=== PATIENT | female | born 1985 | race Caucasian/White ===

== ENCOUNTER 2016-08-13 20:31 | Emergency (ER) | payer OTHER ==
--- NOTE | ~2016-08-13 | CT52 ---
[facility] A Service of [facility] & [facility] RADIOLOGY TEXT RESULTS PATIENT: SYMONE GRAJEDA LOCATION: SED : 87 UNIT #: [id number] AGE: [address]: Camille Balbuena SEX: F ORDER DR: [id number] [address] [address] [id number] E MR#: [id number] Acc #: [id number] NAME: SYMONE GRAJEDA : 1985 SEX: F STUDY DATE/TIME: 08/13/2016 20:33 UNIT: SED ROOM: STUDY DESCRIPTION: CT Cervical Spine Wo Cont Attending Physician: Camille Balbuena Pa-C Ordering Physician: Camille Balbuena Pa-C Primary Care Physician: No Primary Care Physician MEDICAL IMAGING REPORT This report is preliminary unless electronic signature is present. EXAM CT cervical spine without contrast HISTORY Fell and hit head and neck today. Neck pain. TECHNIQUE This CT exam was performed with one or more of the following radiation dose reduction techniques: automatic control, adjustment of mA and/or kV according to patient size, and iterative reconstruction. FINDINGS CT cervical spine without contrast demonstrates satisfactory cervical alignment. No fracture, disc space narrowing or subluxation. No bony central canal stenosis or bony outlet foraminal stenosis. No precervical soft tissue swelling. IMPRESSION Negative CT cervical spine Dictated by... Drew Verdugo M.D. THIS IS AN ELECTRONICALLY VERIFIED REPORT Drew Verdugo M.D. at 08/14/2016 3:36 PM DFL/kate TD: 08/14/2016 01:10 JOB #: [id number] MEDICAL IMAGING REPORT
--- NOTE | ~2016-08-13 | CT71 ---
[facility] A Service of [facility] RADIOLOGY TEXT RESULTS PATIENT: SYMONE GRAJEDA LOCATION: SED : 87 UNIT #: [id number] AGE: [address]: Camille Balbuena PAC SEX: F ORDER DR: [id number] [address] [address] [id number] E MR#: [id number] Acc #: [id number] NAME: SYMONE GRAJEDA : 1985 SEX: F STUDY DATE/TIME: 08/13/2016 20:30 UNIT: SED ROOM: STUDY DESCRIPTION: CT Head Wo Contrast Attending Physician: Camille Balbuena Pa-C Ordering Physician: Camille Balbuena Pa-C Primary Care Physician: No Primary Care Physician MEDICAL IMAGING REPORT This report is preliminary unless electronic signature is present. EXAM CT head without contrast. INDICATIONS Pain after giving her head after falling off a Hover board at 7:00 p.m. tonight. TECHNIQUE This CT exam was performed with one or more of the following radiation dose reduction techniques: automatic exposure control, adjustment of mA and/or kV according to patient size, and iterative reconstruction. Axial CT images were obtained from vertex of the skull through skull base. No intravenous contrast was administered. FINDINGS TECHNIQUE Axial noncontrast images were obtained from the skull base to the vertex. This CT exam was performed with one or more of the following radiation dose reduction techniques: automatic exposure control, adjustment of mA and/or kV according to patient size, and iterative reconstruction. FINDINGS Ventricular size and configuration are normal. There is no evidence of acute infarct or hemorrhage. There are no extraaxial fluid collections. No mass lesion or mass effect is seen. There are no skull fractures. IMPRESSION Normal noncontrast head CT. Dictated by... [facility] A Service [facility] RADIOLOGY TEXT RESULTS PATIENT: SYMONE GRAJEDA LOCATION: SED : 87 UNIT #: [id number] AGE: [address]: Camille Balbuena PAC SEX: F ORDER DR: Vero Larson M.D. THIS IS AN ELECTRONICALLY VERIFIED REPORT Vero Larson M.D. at 08/16/2016 1:18 PM AFF/ea TD: 08/14/2016 00:42 JOB #: [id number] MEDICAL IMAGING REPORT
[~2016-08-13 20:31] MED LIST: ALEVE; ALPRAZOLAM PO; BACTRIM DS TABL1 TA1; FLEXERIL10 MG PO; GYNE LOTRIMIN VG; IBUPROFEN600 MG; IBUPROFEN800 MG PO; LORTAB 5/500 TA1 TA1; MIRALAX17 GM PO; MOBIC PO; MONISTAT VG; MULTIVITAMIN; NAPROSYN-EC500 MG PO; NO MEDICATIONS; PRENATAL VITAMI1 TA4 PO; PYRIDIUM PO; TESSALON200 MG PO; ULTRAM PO; VOLTAREN75 MG PO; ZITHROMAX PO; ZOFRAN ODT4 MG PO
== END 2016-08-13 21:37 | disposition home or self-care (01) ==
LOC: SED 20:31
DX: S13.4XXA Sprain of ligaments of cervical spine, initial encounter (principal); S00.93XA Contusion of unspecified part of head, initial encounter; Z88.0 Allergy status to penicillin; Z88.1 Allergy status to other antibiotic agents; Z88.6 Allergy status to analgesic agent; W18.00XA Striking against unspecified object with subsequent fall, initial encounter; Y92.009 Unspecified place in unspecified non-institutional (private) residence as the place of occurrence of the external cause
CPT/HCPCS: 70450; 72125; 99284